=== PATIENT | male | born 1955 | race Caucasian/White ===

== ENCOUNTER → 2023-01-28 | Outpatient (CLI) | payer MEDICARE ==
[2023-01-28 15:55] LABS: ALBUMIN 3.6 g/dL (3.5-5.0); POTASSIUM 4.1 mmol/L (3.5-5.1); TOTAL PROTEIN, SERUM 6.8 g/dL (6.0-8.3)
== END | disposition home or self-care (01) ==
LOC: LAB 13:11
PROVIDERS: ATTEND Student in an Organized Health Care Education/Training Program
DX: R00.1 Bradycardia, unspecified (principal)
CPT/HCPCS: 36415; 80053

== ENCOUNTER → 2023-02-02 | Outpatient (CLI) | payer MEDICARE ==
[~2023-02-02] MED LIST: IOHEXOL 350 MG/ML 100ML INFUS..BTL IV ONE
== END | disposition home or self-care (01) ==
LOC: RAH 08:10
PROVIDERS: ATTEND Student in an Organized Health Care Education/Training Program
DX: I48.0 Paroxysmal atrial fibrillation (principal); M47.815 Spondylosis without myelopathy or radiculopathy, thoracolumbar region
CPT/HCPCS: 75574; Q9967

== ENCOUNTER → 2023-02-17 | Outpatient (CLI) | payer MEDICARE | END | disposition home or self-care (01) | LOC: SHCH 14:58 | PROVIDERS: ATTEND Student in an Organized Health Care Education/Training Program | DX: I51.7 Cardiomegaly (principal); I48.0 Paroxysmal atrial fibrillation; I34.0 Nonrheumatic mitral (valve) insufficiency | CPT/HCPCS: 93306 ==

== ENCOUNTER → 2023-11-04 | Outpatient (CLI) | payer MEDICARE | END | disposition home or self-care (01) | LOC: RAH 10:45 | PROVIDERS: ATTEND Family Medicine | DX: K57.30 Diverticulosis of large intestine without perforation or abscess without bleeding (principal); M16.11 Unilateral primary osteoarthritis, right hip; M25.551 Pain in right hip | CPT/HCPCS: 73721 ==

== ENCOUNTER → 2024-03-05 | Outpatient (CLI) | payer MEDICARE | END | disposition home or self-care (01) | LOC: RAH 11:10 | PROVIDERS: ATTEND Family Medicine | DX: S83.242A Other tear of medial meniscus, current injury, left knee, initial encounter (principal); S83.282A Other tear of lateral meniscus, current injury, left knee, initial encounter; S83.412A Sprain of medial collateral ligament of left knee, initial encounter; M23.009 Cystic meniscus, unspecified meniscus, unspecified knee; X58.XXXA Exposure to other specified factors, initial encounter; Y93.89 Activity, other specified; Y92.89 Other specified places as the place of occurrence of the external cause; Y99.8 Other external cause status | CPT/HCPCS: 73721 ==

== ENCOUNTER 2025-01-04 09:32 | Day surgery (SDC) | payer MEDICARE ==
[2025-01-02 08:55] LABS: BASOPHILS # (AUTO) 0.03 K/uL (0.00-0.20); BASOPHILS % (AUTO) 0.5 % (0.0-5.0); EOSINOPHILS # (AUTO) 0.17 K/uL (0.00-0.70); EOSINOPHILS % (AUTO) 2.9 % (0.0-8.0); HEMATOCRIT 52.1 % (42-54); IMMATURE GRANULOCYTE ABSOLUTE 0.02 K/uL (0-1); LYMPHOCYTES # (AUTO) 1.4 K/uL (1.0-4.8); LYMPHOCYTES % (AUTO) 24.8 % (21.0-51.0); MEAN CORPUSCULAR HEMOGLOBIN 28.9 pg (27.0-33.0); MEAN CORPUSCULAR HGB CONC 32.6 g/dL (32.0-36.0); MEAN CORPUSCULAR VOLUME 88.6 fL (79-99); MONOCYTES # (AUTO) 0.6 K/uL (0.1-1.0); MONOCYTES % (AUTO) 9.7 % (3.0-13.0); NEUTROPHILS # (AUTO) 3.6 K/uL (1.8-7.7); NEUTROPHILS % (AUTO) 61.8 % (40.0-77.0); PLATELET COUNT (AUTO) 187 K/uL (130-400); RED BLOOD CELL COUNT(AUTO) 5.88 MIL/uL (4.50-6.20); WHITE BLOOD COUNT (AUTO) 5.8 K/uL (4.8-10.8)
[2025-01-02 08:58] VITALS: BP 105/66; PULSE 58; RESP 13; TEMP 97.3
[2025-01-02 09:14] LABS: CREATININE 1.2 mg/dL (0.5-1.3); POTASSIUM 4.5 mmol/L (3.5-5.1)
[2025-01-04] VITALS (7 sets, daily range): BP systolic 89–96; BP diastolic 58–68; PULSE 51–68; RESP 14–17; TEMP 97.3
[~2025-01-04] VITALS: Ht 185.4 cm; Wt 103.2 kg
[~2025-01-04 09:32] MED LIST changes: +0.9%NACL 1000ML 1,000 ML IV SCH; +APIX5TAB PO; +BEMP180T PO; +BROM1.7D12 OP; +EZET10TA48 PO; +FLEC100T3 PO; -IOHEXOL 350 MG/ML 100ML INFUS..BTL IV ONE; +LATA2.5D14 OP; +MELO-108 PO; +NEBI10TA13 PO; +TADA5TAB5 PO
--- NOTE | 2025-01-04 10:10 | EKG ---
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
[2025-01-04] MEDS ORDERED: proPOFol 10 MG/ML 20ML VIAL IV ONE (10:16)
[2025-01-04] MEDS ORDERED: LIDOCAINE HCL MPF 1% 5ML VIAL ONE (10:16)
--- NOTE | 2025-01-04 10:53 | NUR ---
PT SYNCHRONIZED CARDIOVERTED [address] J[address]LES AT THIS TIME BY DR. CHAN PT TOLERATED WELL NAD VSS PT CONVERTED TO NSR 12 LEAD DONE
--- NOTE | 2025-01-04 10:59 | NUR ---
PT AWAKE SPEAKING WITH STAFF AND DR. ROCIO ALBRIGHT
--- NOTE | 2025-01-04 11:07 | EKG ---
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1955 Requested By: ANAID CHAN Order Number: [id number] Reading MD: Shirley Saenz Measurements Intervals [place] Rate: 45 P: 68 CA: 234 QRS: 93 QRSD: 105 T: 81 QT: 469 QTc: 407 Interpretive Statements Sinus bradycardia Prolonged CA interval Probable left atrial enlargement Anteroseptal infarct, age indeterminate Compared to ECG 01/04/2025 09:38:51 First degree AV block now present Atrial fibrillation no longer present Left bundle-branch block no longer present Myocardial infarct finding still present Electronically Signed On 01-05-2025 14:33:53 CDT by Shirley Saenz Please click the below link to view image of tracing.
--- NOTE | 2025-01-04 16:10 | PRN ---
Procedure Note INDICATION FOR PROCEDURE: Persistent atrial fibrillation PROCEDURE: Cardioversion DATE OF PROCEDURE: 01/04/2025 CROSS TIE CUTTER: Dr. Wiliam Chan PROCEDURE NOTE: The patient was prepared in her room in a fasting state. General anesthesia was provided by the anesthesia service. A synchronized shock of 200 J was delivered resulting in sinus rhythm. The patient tolerated the procedure well and there were no complications. IMPRESSION: Persistent atrial fibrillation status post successful cardioversion WILIAM CHAN MD Jan 04, 2025 16:09
== END 2025-01-04 12:05 | disposition home or self-care (01) ==
LOC: DAH 09:32
PROVIDERS: ATTEND Internal Medicine Cardiovascular Disease
DX: I48.19 Other persistent atrial fibrillation (principal); I44.7 Left bundle-branch block, unspecified; I25.2 Old myocardial infarction; I10 Essential (primary) hypertension; Z88.1 Allergy status to other antibiotic agents; Z90.89 Acquired absence of other organs; Z79.01 Long term (current) use of anticoagulants; Z79.899 Other long term (current) drug therapy
CPT/HCPCS: 80048; 85025; 36415; 92960; 93005 ×2; J2704; J3490; A4620; A4215; A4223 ×3; A7002; A4222; A4221; A4663; A4216; A4606

== ENCOUNTER 2025-03-19 06:05 | Day surgery (SDC) | payer MEDICARE ==
[2025-03-14 13:42] LABS: BASOPHILS # (AUTO) 0.05 K/uL (0.00-0.20); BASOPHILS % (AUTO) 0.7 % (0.0-5.0); EOSINOPHILS # (AUTO) 0.23 K/uL (0.00-0.70); HEMATOCRIT 47.5 % (42-54); IMMATURE GRANULOCYTE ABSOLUTE 0.04 K/uL (0-1); LYMPHOCYTES # (AUTO) 1.8 K/uL (1.0-4.8); LYMPHOCYTES % (AUTO) 23.5 % (21.0-51.0); MEAN CORPUSCULAR HEMOGLOBIN 29.7 pg (27.0-33.0); MEAN CORPUSCULAR HGB CONC 32.8 g/dL (32.0-36.0); MEAN CORPUSCULAR VOLUME 90.5 fL (79-99); MONOCYTES # (AUTO) 0.5 K/uL (0.1-1.0); MONOCYTES % (AUTO) 6.5 % (3.0-13.0); NEUTROPHILS % (AUTO) 65.8 % (40.0-77.0); PLATELET COUNT (AUTO) 242 K/uL (130-400); RED BLOOD CELL COUNT(AUTO) 5.25 MIL/uL (4.50-6.20); RED CELL DISTRIBUTION WIDTH 14.4 % (11.0-15.5); WHITE BLOOD COUNT (AUTO) 7.7 K/uL (4.8-10.8)
[2025-03-14 13:48] LABS: POTASSIUM 4.2 mmol/L (3.5-5.1)
[2025-03-14 13:51] LABS: INR 1.22 (0.85-1.15); PROTHROMBIN TIME 12.7 SEC (9.6-11.6)
[2025-03-14 13:53] LABS: PARTIAL THROMBOPLASTIN TIME 32.3 SEC (26.3-35.5)
[2025-03-14 14:18] VITALS: BP 147/69; PULSE 49; RESP 18; TEMP 98.2
--- NOTE | 2025-03-15 08:52 | EKG ---
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
[~2025-03-19] VITALS: Ht 185.4 cm; Wt 105.0 kg
[2025-03-19] VITALS (23 sets, daily range): BP systolic 111–139; BP diastolic 64–84; PULSE 53–79; RESP 10–19; TEMP 96.8–98.1
[~2025-03-19 06:05] MED LIST changes: -0.9%NACL 1000ML 1,000 ML IV SCH; +BRIM5DRO21 OP; -BROM1.7D12 OP; +DRON400T7 PO; -FLEC100T3 PO; +TEST200V21 IM; +[UNRECOGNIZED DRUG - CODE] PO
[2025-03-19] MEDS: 0.9%NACL 1000ML 1,000 ML IV ONE (06:36)
[2025-03-19] MEDS ORDERED: MIDAZOLAM HCL 1 MG/ML 2ML VIAL ONE (07:05)
[2025-03-19] MEDS ORDERED: phenylEPHRINE HCL 10 MG/ML 1ML VIAL IV ONE ×2 (07:05→11:15)
[2025-03-19] MEDS ORDERED: FENTanyl CITRate PF 50 MCG/1 ML 2ML VIAL ONE ×2 (07:06→11:59)
[2025-03-19] MEDS ORDERED: proPOFol 10 MG/ML 20ML VIAL IV ONE (07:06)
[2025-03-19] MEDS ORDERED: rocuRONium bROMide 10MG/1ML 5ML VL ONE ×2 (07:06→11:21)
[2025-03-19] MEDS ORDERED: HEParin 10,000 UNIT/10ML (1,000 UNIT/ML) VIAL ONE ×3 (07:13→09:22)
[2025-03-19] MEDS ORDERED: LIDOCAINE HCL 1% 20 ML VIAL ONE (07:19)
[2025-03-19] MEDS ORDERED: LIDOCAINE HCL 400MG/20ML VIAL ONE (07:45)
[2025-03-19] MEDS ORDERED: HEParin-NS 1,000 UNIT/500 ML 500 ML IV ONE ×2 (07:46→08:01)
[2025-03-19] MEDS ORDERED: ATROPINE 1MG SYG IVP ONE (08:23)
[2025-03-19] MEDS ORDERED: PROTamine SULFate 10 MG/ML 25ML VIAL IV ONE (11:52)
[2025-03-19] MEDS ORDERED: SUCR1TAB2 PO (12:24)
[2025-03-19] MEDS ORDERED: PANT40TA55 PO (12:24)
[2025-03-19] MEDS: SUCRALFATE 1 GM/10 ML PO ONE (14:31)
[2025-03-19] MEDS: PANTOPrazole 40 MG TAB DR PO ONE (14:31)
== END 2025-03-19 16:20 | disposition home or self-care (01) ==
LOC: DAH 06:05
PROVIDERS: ATTEND Internal Medicine Cardiovascular Disease
DX: I48.19 Other persistent atrial fibrillation (principal); Z90.49 Acquired absence of other specified parts of digestive tract; Z90.89 Acquired absence of other organs; Z79.01 Long term (current) use of anticoagulants; Z98.890 Other specified postprocedural states; Z79.899 Other long term (current) drug therapy
CPT/HCPCS: 80048; 85025; 85610; 85730; 36415; 93005; 93656; 93657 ×2; 85347 ×9; C1894 ×3; C1732 ×3; A4649 ×2; C1760 ×3; C1766; J3010 ×2; J3490 ×2; J7030; J0461; J1644 ×5; J2250; J2704; J2371 ×2; A4215; A4222; A4221; A4663; A4216; A4606; J2720; A4223 ×3